=== PATIENT | male | born 1955 | race Caucasian/White ===

== ENCOUNTER 2016-11-29 06:48 | Emergency (ER) | payer SELFPAY ==
[2016-11-29 06:57] VITALS: BP 146/73
[2016-11-29 07:23] LABS: Basophils % (Auto) 0.6 % (0.0-1.8); Eosinophils % (Auto) 0.9 % (0.0-4.3); Hematocrit 44.9 % (35.5-45.6); Hemoglobin 15.1 gm/dl (11.8-15.2); Mean Corpuscular HGB Conc 34 % (32-34); Mean Corpuscular Hemoglobin 30 pg (28-32); Mean Corpuscular Volume 90 fl (84-94); Platelet Count 198 K/mm3 (140-440); Red Cell Distribution Width 13.7 % (13.2-15.2); White Blood Count 11.7 K/mm3 (4.5-11.0)
[2016-11-29 07:35] LABS: Blood Urea Nitrogen 13 mg/dL (9-20); Calcium 9.5 mg/dL (8.4-10.2); Carbon Dioxide 24 mmol/L (22-30); Glucose 293 mg/dL (75-100)
[2016-11-29 07:36] LABS: Anion Gap 17 mmol/L; Chloride 97.2 mmol/L (98-107); Potassium 4.3 mmol/L (3.6-5.0); Sodium 134 mmol/L (137-145)
[2016-11-29] MEDS ORDERED: VALIUM IV ONE (09:37)
[2016-11-29] MEDS ORDERED: NACL 0.9% 1000 ML 1,000 ML IV ONE (09:37)
--- NOTE | 2016-11-29 10:35 | Emergency Department Report ---
HPI - General Chief Complaint: Neck Pain/Injury - HPI HPI: This is a 61-year-old male presents to the emergency department with a complaint of a posterior headache and circumferential neck pain that has been going on for the past 4-5 days. He denies any trauma. He denies any vision change, slurred speech or any other neurological deficits. He tried some Aleve for his symptoms without any relief. He denies any past medical history. He does not have a primary care physician. No recent travel or sick contacts at home. He denies any fever, nausea, vomiting, chest pain or shortness of breath. He does have a slightly sore throat and says that the pain worsens in his neck and head with range of motion and when he does cough. He denies any tobacco or illicit drug use or abuse. 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 ED Past Medical Hx - Past Medical History Previous Medical History?: No - Surgical History Past Surgical History?: No - Social History Smoking Status: Never Smoker Substance Use Type: None - Medications Home Medications: Home Medications Medication Instructions Recorded Confirmed Last Taken Type Diazepam Tab [Valium] 2 mg PO TID PRN #8 tablet 11/29/16 Unknown Rx ED Review of Systems ROS: Stated complaint: BACK PAIN & THROAT PAIN Other details as noted in HPI Comment: All other systems reviewed and negative Constitutional: denies: chills, fever Eyes: denies: eye pain, eye discharge, vision change ENT: throat pain. denies: ear pain Respiratory: denies: cough, shortness of breath, wheezing Cardiovascular: denies: chest pain, palpitations Gastrointestinal: denies: abdominal pain, nausea, diarrhea Genitourinary: denies: urgency, dysuria Musculoskeletal: other (neck pain). denies: back pain, joint swelling Skin: denies: rash, lesions Neurological: headache. denies: numbness, paresthesias Physical Exam - Physical Exam Vital Signs: Vital Signs 11/29/16 11/29/16 06:55 09:21 Temperature 98.1 F Pulse Rate 81 Respiratory 18 16 Rate Blood Pressure 146/73 [Left] O2 Sat by Pulse 99 99 Oximetry Physical Exam: GENERAL: The patient is well-developed well-nourished. HENT: Normocephalic. Atraumatic. Patient has moist mucous membranes. EYES: Extraocular motions are intact. Pupils equal reactive to light bilaterally. NECK: Supple. Trachea is midline. There is tenderness to palpation to the posterior midline, bilateral paraspinal region and the bilateral/lateral cervical muscles. There is no obvious lymphadenopathy or swelling. The pain is reproducible to palpation but the patient also has discomfort with range of motion of the neck. He appears to be restricted in all directions secondary to the pain it causes. CHEST/LUNGS: Clear to auscultation. There is no respiratory distress noted. HEART/CARDIOVASCULAR: Regular. There is no tachycardia. There is no gallop rub or murmur. ABDOMEN: Abdomen is soft, nontender. Patient has normal bowel sounds. There is no abdominal distention. SKIN: There is no rash. There is no edema. There is no diaphoresis. NEURO: The patient is awake, alert, and oriented. The patient is cooperative. The patient has no focal neurologic deficits. The patient has normal speech. MUSCULOSKELETAL: There is no tenderness or deformity. There is no limitation range of motion. There is no evidence of acute injury. Muscle strength 5 out of 5 upper and lower extremity bilaterally. ED Course Vital Signs 11/29/16 11/29/16 06:55 09:21 Temperature 98.1 F Pulse Rate 81 Respiratory 18 16 Rate Blood Pressure 146/73 [Left] O2 Sat by Pulse 99 99 Oximetry ED Medical Decision Making - Lab Data Result diagrams: 11/29/16 07:04 11/29/16 07:04 - Radiology Data Radiology results: report reviewed CT scan of head without IV contrast: History: Headache. Findings: Ventricles are normal in size and midline in location. No evidence of acute ischemia, hemorrhage or mass. No extra-axial fluid collection. Normal brainstem and cerebellum. Normal sinuses and mastoid air cells. Impression: No acute intracranial abnormality. CT scan of cervical spine: History: Neck pain. Findings: The odontoid process and lateral mass appears intact. Anterior and posterior arch of atlas occipital condyles appears normal. Normal height of vertebral bodies. Minimal decrease in height of C5-C6 and C6-C7 with evidence of mild cervical spondylosis. No fracture. Normal prevertebral soft tissue. Impression: Mild cervical spondylosis C5-C6 and C6-C7. - Medical Decision Making 61-year-old male presents with a few days of pain to the back of the head and to the neck appears to worsen with any type of range of motion of the neck. The patient is afebrile and there are no other neurological deficits. Despite the headache with neck pain this does not appear to be consistent with meningitis and he is negative for Kernig's. CT of the head does not show any bleed, shift, mass or any acute process. CT of the cervical spine also does not show any acute process. Labs are mostly unremarkable including no significant leukocytosis. Vital signs stable. He was given a single dose of a muscle relaxer and upon reevaluation he says he is feeling much better and has full range of motion of the head and neck. There are no focal, motor or sensory deficits and his cranial nerves are intact. - Differential Diagnosis muscle spasm, torticollis, meningitis Critical Care Time: No Critical care attestation.: If time is entered above; I have spent that time in minutes in the direct care of this critically ill patient, excluding procedure time. ED Disposition Clinical Impression: Neck pain, Musculoskeletal pain Headache Qualifiers: Headache type: unspecified Headache chronicity pattern: unspecified pattern Intractability: not intractable Qualified Code(s): R51 - Headache Disposition: DC-01 TO HOME OR SELFCARE Is pt being admited?: No Condition: Stable Instructions: Acute Headache (ED), Muscle Spasm (ED) Additional Instructions: Please follow up with a primary care physician in the next few days. Return to the emergency Department with any worsening of your symptoms or any acute distress. You have been prescribed a medication that is sedating and therefore should not be taken prior to driving, working, and responsible for children and in no way should be mixed with alcohol of any quantity. Prescriptions: Diazepam Tab [Valium] 2 mg PO TID PRN #8 tablet PRN Reason: Muscle Spasm Referrals: PRIMARY CARE, [Primary Care Provider] - 3-5 Days ARTURO ORDONEZ MD, PHD [Staff Physician] - 3-5 Days [facility] [Outside] - 3-5 Days [facility] [Outside] - 3-5 Days [facility] [Outside] - 3-5 Days Forms: Work/School Release Form(ED) Time of Disposition: 11:06
--- NOTE | 2016-11-29 10:39 | Cat Scan Report ---
CT scan of cervical spine: History: Neck pain. Findings: The odontoid process and lateral mass appears intact. Anterior and posterior arch of atlas occipital condyles appears normal. Normal height of vertebral bodies. Minimal decrease in height of C5-C6 and C6-C7 with evidence of mild cervical spondylosis. No fracture. Normal prevertebral soft tissue. Impression: Mild cervical spondylosis C5-C6 and C6-C7.
== END 2016-11-29 11:24 | disposition home or self-care (01) ==
LOC: ED 06:48
DX: M54.2 Cervicalgia (principal); R51 Headache
CPT/HCPCS: 36415; 70450; 72125; 80048; 85025; 96361; 96374; 99284; J3360; J7030